=== PATIENT | female | born 1945 | race Caucasian/White ===

== ENCOUNTER 2022-01-03 10:41 | Outpatient (CLI) | payer MEDICARE | END 2022-01-03 10:42 | disposition home or self-care (01) | LOC: RAD 10:41 | PROVIDERS: ATTEND Internal Medicine Critical Care Medicine | DX: R06.00 Dyspnea, unspecified (principal) | CPT/HCPCS: 71046 ==

== ENCOUNTER 2022-07-20 08:52 | Outpatient (CLI) | payer MEDICARE | END 2022-07-20 08:53 | disposition home or self-care (01) | LOC: BICULT 08:52 | PROVIDERS: ATTEND Registered Nurse Hospice | DX: R22.1 Localized swelling, mass and lump, neck (principal) | CPT/HCPCS: 76536 ==

== ENCOUNTER 2022-09-26 08:52 | Outpatient (CLI) | payer MEDICARE | END 2022-09-26 08:53 | disposition home or self-care (01) | LOC: RAD 08:52 | PROVIDERS: ATTEND Internal Medicine Critical Care Medicine | DX: R06.00 Dyspnea, unspecified (principal) | CPT/HCPCS: 71046 ==

== ENCOUNTER 2023-08-07 17:00 | Outpatient (CLI) | payer MEDICARE | END 2023-08-07 17:01 | disposition home or self-care (01) | LOC: SLEEPLAB 17:00 | PROVIDERS: ATTEND Internal Medicine Critical Care Medicine | DX: G47.33 Obstructive sleep apnea (adult) (pediatric) (principal); G47.61 Periodic limb movement disorder | CPT/HCPCS: 95810 ==

== ENCOUNTER 2023-09-06 16:00 | Outpatient (CLI) | payer MEDICARE | END 2023-09-06 16:01 | disposition home or self-care (01) | LOC: SLEEPLAB 16:00 | PROVIDERS: ATTEND Internal Medicine Critical Care Medicine | DX: G47.33 Obstructive sleep apnea (adult) (pediatric) (principal); G47.61 Periodic limb movement disorder; R09.89 Other specified symptoms and signs involving the circulatory and respiratory systems | CPT/HCPCS: 95811 ==

== ENCOUNTER 2024-09-02 10:00 | Outpatient (CLI) | payer MEDICARE | END 2024-09-02 10:01 | disposition home or self-care (01) | LOC: RAD 10:00 | PROVIDERS: ATTEND Internal Medicine Critical Care Medicine | DX: R06.00 Dyspnea, unspecified (principal); J18.1 Lobar pneumonia, unspecified organism; J98.4 Other disorders of lung; J47.9 Bronchiectasis, uncomplicated | CPT/HCPCS: 71046 ==

== ENCOUNTER 2025-05-04 10:02 | Outpatient (CLI) | payer MEDICARE | END 2025-05-04 10:03 | disposition home or self-care (01) | LOC: BICCT 10:02 | PROVIDERS: ATTEND Internal Medicine Critical Care Medicine | DX: R91.1 Solitary pulmonary nodule (principal); J47.9 Bronchiectasis, uncomplicated; J98.11 Atelectasis | CPT/HCPCS: 71250 ==

== ENCOUNTER 2025-06-30 08:23 | Day surgery (SDC) | payer MEDICARE ==
[2025-06-29 12:02] VITALS: BMI 47.6
[~2025-06-30 08:23] MED LIST: Activase 2 MG VIAL FS SCH; EPINEPHrine 0.3 MG in Ophthalmic Irrigation Solution 500 ML IRR SCH
[2025-06-30] MEDS ORDERED: Cyclopentolate 1% Opth Drop 2 ML BOT ONE (09:28)
[2025-06-30] MEDS ORDERED: Lidocaine 1% PF 5 ML VIAL ONE ×2 (10:00→10:48)
[2025-06-30] MEDS ORDERED: PROPOFOL 200 MG/20 ML VIAL ONE (10:48)
[2025-06-30] MEDS ORDERED: Maxitrol 0.1% Opth Oint 3.5 GM TUBE ONE (10:48)
[2025-06-30] MEDS ORDERED: CEFAZOLIN 1 GM VIAL ONE (10:48)
[2025-06-30] MEDS ORDERED: Lidocaine 4% PF 5 ML AMP ONE (10:48)
== END 2025-06-30 12:40 | disposition home or self-care (01) ==
LOC: SDC 08:23
PROVIDERS: ATTEND Ophthalmology Retina Specialist
PROC: 08B53ZZ Excision of Left Vitreous, Percutaneous Approach (ICD-10-PCS; principal; 2025-06-30)
DX: H35.62 Retinal hemorrhage, left eye (principal); Z88.5 Allergy status to narcotic agent; Z90.710 Acquired absence of both cervix and uterus; Z90.49 Acquired absence of other specified parts of digestive tract
CPT/HCPCS: 67043; J0166; J2997; J3010; J0690; J2704; J3301; J3490